=== PATIENT | female | born 1950 | race Caucasian/White ===

== ENCOUNTER 2017-01-05 10:02 | Inpatient (IN) ==
[2017-01-05] MEDS ORDERED: predniSONE 20 MG TABLET PO ONE (10:28)
--- NOTE | 2017-01-05 10:34 | Emergency Department Note ---
Disposition Clinical Impression: Acute exacerbation of chronic obstructive pulmonary disease (COPD), Elevated troponin Disposition: Admitted As Inpatient Condition: Fair Time of Disposition: 12:20 General Adult HPI - General Chief complaint: ED Shortness of Breath/Dyspnea Stated complaint: MARIUSZ, cough Time Seen by Provider: 01/05/17 10:04 Source: patient Mode of arrival: wheelchair Limitations: no limitations Nursing Notes Reviewed: Yes Vital Signs Reviewed: Yes - History of Present Illness HPI Narrative: Patient is a 66-year-old female past medical history of COPD, pacemaker/AICD, and DM she is presenting to the emergency department with the complaint of wheezing and congestion has been going on since yesterday. She states that she has been taking breathing treatments at home and using her inhaler mild to moderate improvement in her symptoms. States she is also felt feverish and had a productive cough. She denies any chest pain, abdominal pain, nausea, vomiting or diarrhea. She states that she is on 2 L of oxygen at home 10/09. She states she did not bring her oxygen today because she was in a hurry. Pain Scale: 5 - Related Data Home Medications Medication Instructions Recorded Confirmed Ascorbic Acid [Vitamin C] 500 mg PO DAILY 01/05/17 01/05/17 Aspirin [Aspirin] 81 mg PO DAILY 01/05/17 01/05/17 Carvedilol [Coreg] 50 mg PO BID 01/05/17 01/05/17 Cholecalciferol (D-3) [Vitamin D] 1,000 unit PO DAILY 01/05/17 01/05/17 Cyclobenzaprine [Flexeril] 10 mg PO HS 01/05/17 01/05/17 Dapagliflozin Propanediol [Farxiga] 5 mg PO DAILY 01/05/17 01/05/17 Digoxin [Lanoxin] 0.125 mg PO DAILY 01/05/17 01/05/17 Exenatide Microspheres [Bydureon 2 mg SQ QWEEK 01/05/17 01/05/17 Pen] Furosemide [Lasix] 40 mg PO DAILY 01/05/17 01/05/17 Glimepiride [Amaryl] 2 mg PO BID 01/05/17 01/05/17 LORazepam [Ativan] 1 mg PO DAILY PRN 01/05/17 01/05/17 Lisinopril [Zestril] 5 mg PO DAILY 01/05/17 01/05/17 Ivor-3/Dha/Epa/Fish Oil [Fish Oil 1,000 mg PO DAILY 01/05/17 01/05/17 1,000 mg Softgel] Paroxetine [Paxil] 20 mg PO DAILY 01/05/17 01/05/17 Roflumilast [Daliresp] 500 mcg PO DAILY 01/05/17 01/05/17 Sitagliptin Phos/Metformin HCl 1 tab PO BID 01/05/17 01/05/17 [Janumet 50-1,000 mg Tablet] Tiotropium [place] [Spiriva 2 puff IH DAILY 01/05/17 01/05/17 Respimat] Warfarin [Coumadin] 7.5 mg PO SUMOTUTHFRSA 01/05/17 01/05/17 Warfarin [Coumadin] 10 mg PO WE 01/05/17 01/05/17 Allergies Allergy/AdvReac Type Severity Reaction Status Date / Time No Known Allergies Allergy Verified 02/06/15 12:49 Review of Systems: Constitutional: Positive for subjective fever and chills Vision: No blurred vision ENT: No rhinorrhea Respiratory: Positive for productive cough and shortness of breath Allergic: No allergies : No blood in urine GI: No blood in stool, no N/V/D or abdominal pain Hematologic: No bruising Dermatologic: No skin rash Musculoskeletal: No pain in the extremities Neuro: No numbness of the extremities All systems ED: reviewed and negative except as stated. Review of Systems: As Per HPI Past Medical History - Past Medical History Medical history: Reports: non-contributory, COPD, diabetes Psychiatric history: Reports: no psych history - Social History Smoking Status: Never smoker Smokeless Tobacco Status: No Alcohol use: Reports: none Drug use: Reports: none Physical Exam CONSTITUTIONAL: Alert and oriented X3, well-nourished, well appearing, in no apparent distress. Patient vital signs she is afebrile, pulse rate is in the 60s , respirations 18, blood pressure is 106/65, and the patient is at 94% on 2 L. patient is sitting up in bed she is able speak to me in full sentences. She does not appear to be in acute respiratory distress. HEAD: Normocephalic; atraumatic. EYES: PERRL, Patien thas a lazy eye on the left. no scleral icterus. NOSE: The nose is normal in appearance without rhinorrhea RESP: Normal chest excursion with respiration; patient has diffuse wheezes throughout inspiratory and expiratory. CARD: Regular rhythm, without murmurs, rub or gallop ABD: Non-distended; non-tender, soft,without rigidity, rebound or guarding SKIN: Normal for age and race; warm and dry; no apparent lesions - General General appearance: alert Course Course Narrative: Patient is a 66 female past medical history of COPD presenting with complaint of wheezing and worsening cough. She came in 84% on room air, however the patient states that she is normally on 2 L of oxygen at home and she forgot her oxygen while rushing into the ED today. While in the room the patient is sitting comfortably on 2 L at 94% oxygen saturation. Plan for this patient is do chest x-ray will order basic labs and also cardiac labs. I will check an EKG. The patient will receive an hour of DuoNeb treatments and oral steroids. I will then reevaluate the patient. - Reevaluation(s) Reevaluation #1: Critical lab troponin 0.08 called in. Patient currently undergoing nebulizer treatment. Time: 11:40 Reevaluation #2: Discussed with patient her elevated lab. Patient states she is feeling better after having her breathing treatment. She is currently satting at 92% on 4 L. I discussed with the patient the plan to admit her to the hospitalist for further observation and monitoring of her troponin. She agrees with this plan. I spoke with Quinton Marc NP and he agrees to accept the patient. Time: 12:19 Vital Signs Temperature 97.4 F L 01/05/17 10:03 Pulse Rate 92 01/05/17 10:03 Respiratory Rate 20 01/05/17 10:03 Blood Pressure 112/64 01/05/17 10:03 O2 Sat by Pulse Oximetry 84 01/05/17 10:03 Temperature 97.6 F 01/05/17 19:00 Pulse Rate 62 01/05/17 19:00 Respiratory Rate 15 01/05/17 20:03 Blood Pressure 99/55 01/05/17 19:00 O2 Sat by Pulse Oximetry 89 01/05/17 20:03 Oxygen Delivery Oxygen Delivery Nasal Cannula Medical Decision Making - Medical Records Medical records reviewed: Yes I reviewed the patient's medical records. - Lab Data Result diagrams: 01/05/17 10:49 01/05/17 10:49 Lab Results 01/05/17 01/05/17 01/05/17 Range/Units 10:49 10:49 10:49 WBC 7.1 (4.3-11.1) K/mcL RBC 4.59 (3.82-4.97) M/mcL Hgb 12.9 (11.5-15.4) g/dL Hct 39.5 (35.3-44.9) % MCV 86.1 (83.0-100.0) fL MCH 28.1 (28.0-33.3) pg MCHC 32.7 (31.6-35.5) g/dL RDW 14.7 H (11.5-14.5) % Plt Count 148 (140-400) K/mcL MPV 9.9 (9.4-12.4) fL Immature Gran % 0.3 (0-4) % Seg Neutrophils % 81.7 % Lymphocytes % 5.5 % Monocytes % 10.4 % Eosinophils % 1.8 % Basophils % 0.3 % Neutrophils # 5.8 (1.6-8.9) K/mcL Lymphocytes # 0.4 L (0.6-4.6) K/mcL Monocytes # 0.7 (0.0-1.3) K/mcL Eosinophils # 0.1 (0.0-0.6) K/mcL Basophils # 0.0 (0.0-0.2) K/mcL Immature Plt Fraction 3.2 (1.1-6.1) % VBG pH (7.32-7.42) pH Units VBG pCO2 (41-51) mmHg VBG pO2 (25-50) mmHg VBG HCO3 (21-27) mEq/L Sodium 138 (136-145) mEq/L Potassium 4.6 H (3.5-4.5) mEq/L Chloride 101 (98-109) mEq/L Carbon Dioxide 30 H (19-29) mEq/L BUN 17 (7-20) mg/dL Creatinine 0.99 (0.57-1.11) mg/dL Est GFR ( Amer) > 60 (> 60) Est GFR (Non-Af Amer) 56 L (> 60) BUN/Creatinine Ratio 17 (6-26) Glucose 167 H (70-99) mg/dL Calculated Osmolality 291 (280-300) Lactic Acid 1.2 (0.5-2.2) mmol/L Calcium 10.1 (8.6-10.8) mg/dL Troponin I (0-0.03) ng/mL B-Natriuretic Peptide (0-100) pg/mL 01/05/17 01/05/17 01/05/17 Range/Units 10:49 10:49 10:58 WBC (4.3-11.1) K/mcL RBC (3.82-4.97) M/mcL Hgb (11.5-15.4) g/dL Hct (35.3-44.9) % MCV (83.0-100.0) fL MCH (28.0-33.3) pg MCHC (31.6-35.5) g/dL RDW (11.5-14.5) % Plt Count (140-400) K/mcL MPV (9.4-12.4) fL Immature Gran % (0-4) % Seg Neutrophils % % Lymphocytes % % Monocytes % % Eosinophils % % Basophils % % Neutrophils # (1.6-8.9) K/mcL Lymphocytes # (0.6-4.6) K/mcL Monocytes # (0.0-1.3) K/mcL Eosinophils # (0.0-0.6) K/mcL Basophils # (0.0-0.2) K/mcL Immature Plt Fraction (1.1-6.1) % VBG pH 7.35 (7.32-7.42) pH Units VBG pCO2 57 H (41-51) mmHg VBG pO2 36 (25-50) mmHg VBG HCO3 32 H (21-27) mEq/L Sodium (136-145) mEq/L Potassium (3.5-4.5) mEq/L Chloride (98-109) mEq/L Carbon Dioxide (19-29) mEq/L BUN (7-20) mg/dL Creatinine (0.57-1.11) mg/dL Est GFR ( Amer) (> 60) Est GFR (Non-Af Amer) (> 60) BUN/Creatinine Ratio (6-26) Glucose (70-99) mg/dL Calculated Osmolality (280-300) Lactic Acid (0.5-2.2) mmol/L Calcium (8.6-10.8) mg/dL Troponin I 0.08 H* (0-0.03) ng/mL B-Natriuretic Peptide 155 H (0-100) pg/mL - Radiology Data Radiology results reviewed: Yes I reviewed the patient's radiology results. Chest X-Ray 01/05/17 10:30 IMPRESSION: Stable cardiomegaly. Mild pulmonary vascular congestion. D/ / Milad Mackay MD / Milad Mackay MD Interpreting Provider: Milad Mackay MD - EKG Data EKG #1 EKG attestation: Yes I reviewed and interpreted this EKG. EKG results narrative: EKG done at 11:01 interpreted by me shows electronic ventricular paced rhythm at 60 bpm. QRS is 152, QT is 438, QTC is 438 degrees are within normal limits. Attestation Statement - Attestation Attestation: I examined this patient and my medical decision-making was reviewed with the Resident Physician. I agree with the documented findings, disposition and treatment plan as described except to the extent set forth below. This is a 66- year-old female presents with concern for dyspnea. I do suspect COPD exacerbation. She did present with hypoxia. Ultimately DuoNeb as well as steroids were administered in addition antibiotics. Chest x-ray shows concern for possible pulmonary edema. ProBNP is within normal limits. Plan to admit for further evaluation of dyspnea due to ongoing hypoxia. I spent greater than 35 minutes of critical care time assessed in this acutely ill patient suffering from hypoxia. This is excluding billable procedures.
[2017-01-05 10:55] LABS: Basophils % 0.3 %; Eosinophils # 0.1 K/mcL (0.0-0.6); Eosinophils % 1.8 %; Hematocrit 39.5 % (35.3-44.9); Hemoglobin 12.9 g/dL (11.5-15.4); Immature Granulocytes % 0.3 % (0-4); Immature Platelets 3.2 % (1.1-6.1); Lymphocytes # 0.4 K/mcL (0.6-4.6); Lymphocytes % 5.5 %; Mean Corpuscular HGB Conc 32.7 g/dL (31.6-35.5); Mean Corpuscular Hemoglobin 28.1 pg (28.0-33.3); Mean Corpuscular Volume 86.1 fL (83.0-100.0); Mean Platelet Volume 9.9 fL (9.4-12.4); Monocytes # 0.7 K/mcL (0.0-1.3); Monocytes % 10.4 %; Neutrophils # 5.8 K/mcL (1.6-8.9); Platelet Count 148 K/mcL (140-400); Red Blood Count 4.59 M/mcL (3.82-4.97); Red Cell Distribution Width 14.7 % (11.5-14.5); Segmented Neutrophils % 81.7 %
[2017-01-05 11:00] LABS: VBG HCO3 32 mEq/L (21-27); VBG PCO2 57 mmHg (41-51); VBG PH 7.35 pH Units (7.32-7.42); VBG PO2 36 mmHg (25-50)
[2017-01-05] MEDS: Ipratropium/Albuterol Neb 3 ML IH SCH ×4 (11:01→23:26)
[2017-01-05 11:05] LABS: BUN/Creatinine Ratio 17 (6-26); Blood Urea Nitrogen 17 mg/dL (7-20); Calcium 10.1 mg/dL (8.6-10.8); Carbon Dioxide 30 mEq/L (19-29); Chloride 101 mEq/L (98-109); Glucose 167 mg/dL (70-99); Osmolality,Calculated 291 (280-300); Potassium 4.6 mEq/L (3.5-4.5); Sodium 138 mEq/L (136-145); eGFR For African Americans > 60 (> 60); eGFR For Non-African Americans 56 (> 60)
[2017-01-05] MEDS ORDERED: Aspirin 81 MG TAB.CHEW PO ONE (12:22)
[2017-01-05] MEDS ORDERED: Levofloxacin 750 MG/150 ML 750 MG/150 ML BAG IVPB ONE (12:22)
[2017-01-05] MEDS ORDERED: Albuterol 2.5 MG/3 ML NEBULIZER IH PRN (12:50)
[2017-01-05] MEDS ORDERED: Naloxone 0.4 MG/ML INJ IVP PRN ×2 (12:53→23:03)
[2017-01-05] MEDS ORDERED: Dextrose Gel 15 GM PO PRN ×2 (12:53)
[2017-01-05] MEDS ORDERED: *HR* Dextrose 50 % in Water (Syg) 50 ML SYRINGE IVP PRN (12:53)
[2017-01-05] MEDS ORDERED: D5% in Water 1,000 ML IVC PRN (12:53)
--- NOTE | 2017-01-05 12:59 | Internal Med History&Physical ---
<Alvarez Marc - Last Filed: 01/05/17 18:14> Date of Encounter: 01/05/17 Time of Encounter: 12:58 Assessment and Plan (1) Acute exacerbation of chronic obstructive pulmonary disease (COPD) Current visit: Yes Status: Acute SOB, increasing o2 requirements to maintain O2 sats, increasing congestion, sputum production and wheezing. Appears to be an acute exacerbation of COPD as well as mild pulmonary vascular congestion. Does not appear septic, no leukocytosis, hemodynamically stable, only mild respiratory distress. Duoneb Q4hrs RENA Albuterol Q2hrs PRN Solumedrol 40mg Q8HRS Levaquin IVPB QD Recheck CBC, BMP in morning Serial trops Rapid Flu swab now (2) Acute on chronic systolic CHF (congestive heart failure) Current visit: Yes Status: Acute Acute SOB, CXR shows mild pulmonary vascular congestion, no peripheral edema noted, no weight gain. She reports she has had no prior coronary events. History of hypertension, biventricular pacer, atrial fibrillation, congestive heart failure. Last Echo 04/2014 with EF of 30%, showing mod diastolic right ventricular dysfunction with mild reduced systolic dysfunction and severe left ventricular systolic dysfunction with diffuse hypokinesis. Last stress test of ischemia noted. Denies any chest pain, hemodynamically stable on the reporting mild shortness of breath. Echocardiogram Serial troponins Continuous telemetry, continuous O2 monitoring Lasix 40 mg IV push twice a day Hold off on stress test for now; no c/o CP, Consider stress if she develops CP or if trop increases (3) Diabetes Current visit: Yes Status: Acute Hold Farxiga, Amaryl, and metformin. Start LSSIC, AC/HS Accu-Cheks, diabetic/cardiac diet Qualifiers: Diabetes mellitus type: type 2 Diabetes mellitus complication status: without complication Diabetes mellitus termite helper insulin use: unspecified termite helper insulin use status Qualified Code(s): E11.9 - Type 2 diabetes mellitus without complications (4) HTN (hypertension) Current visit: Yes Status: Acute Continue KIM Qualifiers: Hypertension type: unspecified Qualified Code(s): I10 - Essential (primary ) hypertension (5) Elevated troponin Current visit: Yes Status: Acute No prior history of SC, troponin 0.08. See plan above (6) A-fib Current visit: Yes Status: Acute h/o, stable, now BIventricular paced, continue home digoxin and coumadin with PT to dose. PT/INR now then per protocol Qualifiers: Qualified Code(s): I48.91 - Unspecified atrial fibrillation (7) DVT prophylaxis Current visit: Yes Status: Acute Heparin SC 5000units Q12hrs Internal Medicine - H&P: HPI Chief complaint: COPD exacerbation, CHF exacerbation, elevated troponin Admitted From: Home Plans for Post Hospital Care: Home History of present illness: Ms. Tatum is a 66 year old female with PMH of atrial fibrillation, biventricular AICD, COPD, diabetes, CHF. Presents today to [facility] with shortness of breath. She reports shortness of breath and wheezing beginning this morning. Patient states that she wears 2 L of oxygen at home but had to increase her oxygen to 4 L as of this morning due to shortness of breath. She admits to fever, chills, generalized body aches, post nasal drip, sore throat, sinus pressure, orthopnea, and lightheadedness. Denies any CP, N/V, diaphoresis, or syncope. Chest x-ray showed mild pulmonary vascular congestion, troponin elevated at 0.08, BNP 155 Past Med Surg Social Fam HX - Past Medical History Medical history: non-contributory, COPD, diabetes Psychiatric history: no psych history - Social History Smoking Status: Never smoker Smokeless Tobacco Status: No Alcohol use: none Drug use: none - Family History Mother Living Status: Age at : 72 Cause of : Ovarian cancer Sister Hx Family Endocrine Disorder: Yes (Thyroid removal) Internal Medicine - H&P: Meds Ascorbic Acid [Vitamin C] 500 mg PO DAILY 01/05/17 [History] Aspirin [Aspirin] 81 mg PO DAILY 01/05/17 [History] Carvedilol [Coreg] 50 mg PO BID 01/05/17 [History] Cholecalciferol (D-3) [Vitamin D] 1,000 unit PO DAILY 01/05/17 [History] Cyclobenzaprine [Flexeril] 10 mg PO HS 01/05/17 [History] Dapagliflozin Propanediol [Farxiga] 5 mg PO DAILY 01/05/17 [History] Digoxin [Lanoxin] 0.125 mg PO DAILY 01/05/17 [History] Exenatide Microspheres [Bydureon Pen] 2 mg SQ QWEEK 01/05/17 [History] Furosemide [Lasix] 40 mg PO DAILY 01/05/17 [History] Glimepiride [Amaryl] 2 mg PO BID 01/05/17 [History] LORazepam [Ativan] 1 mg PO DAILY PRN 01/05/17 [History] Lisinopril [Zestril] 5 mg PO DAILY 01/05/17 [History] [place]-3/Dha/Epa/Fish Oil [Fish Oil 1,000 mg Softgel] 1,000 mg PO DAILY 01/05/17 [History] Paroxetine [Paxil] 20 mg PO DAILY 01/05/17 [History] Roflumilast [Daliresp] 500 mcg PO DAILY 01/05/17 [History] Sitagliptin Phos/Metformin HCl [Janumet 50-1,000 mg Tablet] 1 tab PO BID [History] Tiotropium [place] [Spiriva Respimat] 2 puff IH DAILY 01/05/17 [History] Warfarin [Coumadin] 7.5 mg PO SUMOTUTHFRSA 01/05/17 [History] Warfarin [Coumadin] 10 mg PO WE 01/05/17 [History] 3 Allergy/AdvReac Type Severity Reaction Status Date / Time No Known Allergies Allergy Verified 02/06/15 12:49 All Systems PM: A 10-system review of systems was performed and is negative for pertinent findings except as documented above in the HPI. - Constitutional Constitutional: chills, fatigue, fever(s), weakness, no night sweats, no weight gain, no weight loss - EENT Nose, mouth and throat: nasal congestion, post-nasal drip, sinus pain, sinus pressure, sore throat, no nasal discharge, no throat swelling, no tongue swelling - Cardiovascular Cardiovascular ROS IM: as per HPI, orthopnea, no chest pain, no edema, no irregular heart rhythm, no lightheadedness, no palpitations, no paroxysmal nocturnal dyspnea, no syncope - Respiratory Respiratory: cough, dyspnea, wheezing, chest congestion, no pain on inspiration Additional comments: increasing sputum production - Gastrointestinal Gastrointestinal: no abdominal pain, no diarrhea, no nausea, no vomiting - Genitourinary Genitourinary: no dysuria, no flank pain - Integumentary Integumentary IM: no rash, no unusual bruising - Neurological Neurological ROS: headache(s) - Constitutional Vitals: Temp Pulse Resp BP Pulse Ox 97.4 F L 60 18 104/67 98 01/05/17 10:03 01/05/17 12:54 01/05/17 12:54 01/05/17 12:54 01/05/17 12:54 General appearance: Present: cooperative, A&O X 3, no acute distress, answers questions appropriately - Head Head exam: Present: atraumatic, normocephalic - Eye Eye exam: Present: PERRL, conjuntiva pink, sclera anicteric Pupils: Present: PERRL - Neck Neck exam general surgery: Present: supple, trachea midline. Absent: lymphadenopathy - Respiratory Respiratory exam: Present: CTAB, wheezes, tachypnea. Absent: accessory muscle use, chest wall tenderness, rales, respiratory distress, rhonchi - Cardiovascular Cardiovascular exam: Present: RRR, +S1, +S2. Absent: diastolic murmur, gallop, rubs, systolic murmur - GI/Abdominal GI/Abdominal exam: Present: normal bowel sounds, soft, no peritoneal signs. Absent: distended, tenderness - Extremities Exam Extremities exam: Present: warm, radial pulses palpable and symmetrical. Absent : calf tenderness, cyanotic, pedal edema - Neurological Exam Neurological exam: Present: CN II-XII intact, oriented X3, no focal deficits. Absent: pronater drift, facial droop, speech deficit - Skin Skin exam: Present: dry, intact Internal Med - H&P Results - Labs CBC & Chem 7: 01/05/17 10:49 01/05/17 10:49 - EKG Data Prior EKG available for review: yes When compared to previous EKG: there is no significant change EKG comments: 01/05/17 13:09 Biventricular paced - Diagnostic Studies Chest x-ray Status: image reviewed by me Additional comments: Mild pulmonary vascular congestion, stable cardiomegaly <Damián Huggins - Last Filed: 01/05/17 19:12> Date of Encounter: 01/05/17 Internal Medicine - H&P: HPI History of present illness: Ms. Tatum is a 66 year old female All Systems PM: A 10-system review of systems was performed and is negative for pertinent findings except as documented above in the HPI. - Constitutional Vitals: Temp Pulse Resp BP Pulse Ox 97.6 F 62 16 99/55 93 01/05/17 19:00 01/05/17 19:00 01/05/17 19:00 01/05/17 19:00 01/05/17 19:00 Internal Med - H&P Results - Labs CBC & Chem 7: 01/05/17 10:49 01/05/17 10:49 Labs: Cardiac Enzymes 01/05/17 Range/Units 15:58 Troponin I 0.08 H* (0-0.03) ng/mL - Attending Attestation I have personally performed a face to face evaluation on this patient. I have reviewed and agree with the care plan. History and Exam by me shows: 66 y/o female admitted for acute exac COPD. She is currently high risk due to potential for worsening resp status. Exam Alert. Comfortable Wheeze present No tachycardia Agree with assessment and plan as documented above.
[2017-01-05] MEDS ORDERED: Furosemide 20 MG/2 ML VIAL IVP SCH (13:45)
[2017-01-05 15:10] LABS: INR 2.7; Prothrombin Time 29.5 Seconds (9.4-12.1)
[2017-01-05] MEDS ORDERED: Warfarin perPT PO PRN (18:00)
[2017-01-05] MEDS ORDERED: *HR* Warfarin 5 MG TABLET PO ONE (18:00)
[2017-01-05] MEDS: MethylPREDNISolone 40 MG/ML VIAL IVP SCH ×2 (18:14→23:44)
[2017-01-05] MEDS: Furosemide 40 MG/4 ML VIAL IVP SCH (18:14)
[2017-01-05] MEDS: Insulin LISPRO 300 UNITS/3 ML VIAL SQ SCH ×2 (18:16→21:41)
[2017-01-05] MEDS: *HR* Heparin 5,000 UNIT/ML VIAL SQ SCH (18:31)
[2017-01-05] MEDS: *HR* LORazepam 1 MG TABLET PO PRN (21:40)
[2017-01-06] MEDS: Ipratropium/Albuterol Neb 3 ML IH SCH ×6 (03:49→22:00)
[2017-01-06 04:24] LABS: Hematocrit 39.5 % (35.3-44.9); Mean Corpuscular HGB Conc 32.9 g/dL (31.6-35.5); Mean Corpuscular Hemoglobin 27.5 pg (28.0-33.3); Mean Corpuscular Volume 83.5 fL (83.0-100.0); Mean Platelet Volume 10.3 fL (9.4-12.4); Platelet Count 154 K/mcL (140-400); Red Blood Count 4.73 M/mcL (3.82-4.97); Red Cell Distribution Width 14.6 % (11.5-14.5)
[2017-01-06 04:28] LABS: Prothrombin Time 32.7 Seconds (9.4-12.1)
[2017-01-06 04:37] LABS: Calcium 10.7 mg/dL (8.6-10.8); Potassium 4.4 mEq/L (3.5-4.5)
[2017-01-06] MEDS: *HR* Heparin 5,000 UNIT/ML VIAL SQ SCH (05:50)
[2017-01-06] MEDS: Aspirin 81 MG TAB.CHEW PO SCH (09:05)
[2017-01-06] MEDS: Furosemide 40 MG/4 ML VIAL IVP SCH (09:06)
[2017-01-06] MEDS: *HR* Digoxin 0.125 MG TABLET PO SCH (09:06)
[2017-01-06] MEDS: Insulin LISPRO 300 UNITS/3 ML VIAL SQ SCH ×4 (09:06→21:33)
[2017-01-06] MEDS: MethylPREDNISolone 40 MG/ML VIAL IVP SCH ×2 (09:06→17:47)
[2017-01-06] MEDS: (Roflumilast [Daliresp] 500 MCG) PO SCH (09:17)
--- NOTE | 2017-01-06 10:50 | Internal Med Progress Note ---
Date of Encounter: 01/06/17 Time of Encounter: 10:40 - Assessment and plan (1) Acute on chronic respiratory failure with hypoxemia Current Visit: Yes Status: Acute Assessment and plan: Currently on 4 liters NC and home dose is 2 Liters. Will taper back as able. No distress at this time. (2) Acute exacerbation of chronic obstructive pulmonary disease (COPD) Current Visit: Yes Status: Acute Assessment and plan: Currently on IV steroids, aerosols, oxygen and abx. Will decrease IV steroids today and continue other management as ordered. (3) Acute on chronic systolic CHF (congestive heart failure) Current Visit: Yes Status: Acute Assessment and plan: Has been receiving BID Lasix and appears to have diuresed some and is improving. Will decrease to daily due to improvement and increase in creatinine level this AM. (4) Demand ischemia Current Visit: Yes Status: Acute Assessment and plan: Troponin static and low. Most likely related to CHF, hypoxia and exac COPD. (5) A-fib Current Visit: Yes Status: Chronic Assessment and plan: Continue home meds and coumadin managed by pharmacy Qualifiers: Atrial fibrillation type: chronic Qualified Code(s): I48.2 - Chronic atrial fibrillation (6) Acute kidney injury Current Visit: Yes Status: Acute Assessment and plan: Most likely related to diuresis. Will decrease diuretic today and recheck in AM. (7) HTN (hypertension) Current Visit: Yes Status: Chronic Assessment and plan: Appears controlled at this time. Qualifiers: Hypertension type: essential hypertension Qualified Code(s): I10 - Essential (primary) hypertension (8) Diabetes Current Visit: Yes Status: Chronic Assessment and plan: Continue accuchecks and coverage Qualifiers: Diabetes mellitus type: type 2 Diabetes mellitus complication status: without complication Diabetes mellitus skilled nursing insulin use: unspecified skilled nursing insulin use status Qualified Code(s): E11.9 - Type 2 diabetes mellitus without complications (9) HLD (hyperlipidemia) Current Visit: Yes Status: Chronic Assessment and plan: Chronic issue Qualifiers: Hyperlipidemia type: mixed hyperlipidemia Qualified Code(s): E78.2 - Mixed hyperlipidemia - Subjective Interval history: Ms. Tatum is currently admitted for acute exac CHF and COPD. She remains moderate to high risk due to potential for worsening respiratory status. Ms. Tatum feels a little better today. She says her breathing has improved some and her swellling is somewhat better. No CP. No fever or chills. Has been up walking in room at times. Getting treatments around the clock at this time. - Constitutional Vitals: Temp Pulse Resp BP Pulse Ox 97.5 F L 64 16 147/81 97 01/06/17 07:33 01/06/17 07:33 01/06/17 07:56 01/06/17 07:33 01/06/17 07:56 General appearance: Present: cooperative, A&O X 3, no acute distress, answers questions appropriately - Head Head exam: Present: atraumatic, normocephalic - Eye Eye exam: Present: conjuntiva pink - ENT ENT exam: Present: mucous membranes moist - Neck Neck exam general surgery: Absent: lymphadenopathy, thyromegaly - Respiratory Respiratory exam: Present: decreased breath sounds, wheezes. Absent: rales, rhonchi - Cardiovascular Cardiovascular exam: Present: distant heart sounds, RRR. Absent: tachycardia - GI/Abdominal GI/Abdominal exam: Present: soft. Absent: mass, tenderness - Extremities Exam Extremities exam: Present: warm. Absent: tenderness - Neurological Exam Neurological exam: Present: alert, oriented X3 - Skin Skin exam: Present: dry, warm. Absent: rash Internal Medicine: Result - Labs CBC & Chem 7: 01/06/17 04:01 01/06/17 04:01 Labs: Short CBC 01/06/17 Range/Units 04:01 WBC 3.3 L D (4.3-11.1) K/mcL Hgb 13.0 (11.5-15.4) g/dL Hct 39.5 (35.3-44.9) % Plt Count 154 (140-400) K/mcL [facility] 01/06/17 04:01 Sodium 137 Potassium 4.4 Chloride 99 Carbon Dioxide 28 BUN 27 H D Creatinine 1.31 H Glucose 190 H Calcium 10.7 - ABG Interpretation ABG results: PT/INR, D-dimer PT 32.7 Seconds (9.4-12.1) H 01/06/17 04:01 Consult Discharge Plan - Plan Referrals: Salome Gonsalez MD [Primary Care Provider] -
[2017-01-06] MEDS ORDERED: Levofloxacin 750 MG/150 ML 750 MG/150 ML BAG IVPB SCH (11:00)
[2017-01-06] MEDS ORDERED: *HR* Warfarin 4 MG TABLET PO ONE (18:00)
--- NOTE | 2017-01-06 19:45 | Electrocardiograph Report ---
[place] [id number] Test Date: 2017-01-05 Pat Name: Vandana Tatum Department: 102 Room: 3B24 Gender: Mid Level Developer: : 1950 Requested By: Bill Nichole Order Number: [id number] Reading MD: Juan Santos MD Measurements Intervals May Rate: 60 P: NC: 0 QRS: 216 QRSD: 152 T: 60 QT: 438 QTc: 438 Interpretive Statements ELECTRONIC VENTRICULAR PACEMAKER Electronically Signed On 01-06-2017 19:44:06 EST by Juan Santos MD
[2017-01-06] MEDS: *HR* LORazepam 1 MG TABLET PO PRN (21:33)
[2017-01-07 04:29] LABS: Hematocrit 39.8 % (35.3-44.9); Mean Corpuscular HGB Conc 32.7 g/dL (31.6-35.5); Mean Corpuscular Hemoglobin 27.4 pg (28.0-33.3); Mean Corpuscular Volume 83.8 fL (83.0-100.0); Mean Platelet Volume 10.5 fL (9.4-12.4); Platelet Count 182 K/mcL (140-400); Red Blood Count 4.75 M/mcL (3.82-4.97); Red Cell Distribution Width 14.5 % (11.5-14.5)
[2017-01-07] MEDS: Ipratropium/Albuterol Neb 3 ML IH SCH ×2 (04:29→11:11)
[2017-01-07 04:36] LABS: INR 2.9; Prothrombin Time 32.5 Seconds (9.4-12.1)
[2017-01-07 04:49] LABS: Calcium 10.2 mg/dL (8.6-10.8); Magnesium 2.1 mg/dL (1.6-2.6); Potassium 4.3 mEq/L (3.5-4.5)
[2017-01-07] MEDS: MethylPREDNISolone 40 MG/ML VIAL IVP SCH (05:22)
[2017-01-07 07:17] VITALS: BP 112/68
[2017-01-07] MEDS: *HR* Digoxin 0.125 MG TABLET PO SCH (08:38)
[2017-01-07] MEDS: Aspirin 81 MG TAB.CHEW PO SCH (08:38)
[2017-01-07] MEDS: Insulin LISPRO 300 UNITS/3 ML VIAL SQ SCH (08:39)
[2017-01-07] MEDS: (Roflumilast [Daliresp] 500 MCG) PO SCH (08:53)
--- NOTE | 2017-01-07 08:57 | Discharge Summary ---
Date of Encounter: 01/07/17 Time of Encounter: 08:48 - Discharge Diagnosis (1) Acute on chronic respiratory failure with hypoxemia Priority: Primary Status: Acute (2) Acute exacerbation of chronic obstructive pulmonary disease (COPD) Priority: Primary Status: Acute (3) Acute on chronic systolic CHF (congestive heart failure) Priority: Primary Status: Acute (4) Demand ischemia Priority: Secondary Status: Acute (5) A-fib Priority: Secondary Status: Chronic Qualifiers: Atrial fibrillation type: chronic Qualified Code(s): I48.2 - Chronic atrial fibrillation (6) Acute kidney injury Priority: Secondary Status: Acute (7) HTN (hypertension) Priority: Secondary Status: Chronic Qualifiers: Hypertension type: essential hypertension Qualified Code(s): I10 - Essential (primary) hypertension (8) Diabetes Priority: Secondary Status: Chronic Qualifiers: Diabetes mellitus type: type 2 Diabetes mellitus complication status: without complication Diabetes mellitus penitentiary insulin use: unspecified terminal clerk insulin use status Qualified Code(s): E11.9 - Type 2 diabetes mellitus without complications (9) HLD (hyperlipidemia) Priority: Secondary Status: Chronic Qualifiers: Hyperlipidemia type: mixed hyperlipidemia Qualified Code(s): E78.2 - Mixed hyperlipidemia - Discharge Medications Prescriptions: Albuterol Sulfate [Ventolin Hfa] 2 puff IH QID PRN #1 hfa.aer.ad PRN Reason: Dyspnea levoFLOXacin [Levaquin] 750 mg PO DAILY #3 tablet PredniSONE [Deltasone] 40 mg PO DAILY #5 tablet Home Medications: Ascorbic Acid [Vitamin C] 500 mg PO DAILY 01/05/17 [History] Aspirin 81 mg PO DAILY 01/05/17 [History] Carvedilol [Coreg] 50 mg PO BID 01/05/17 [History] Cholecalciferol (D-3) [Vitamin D] 1,000 unit PO DAILY 01/05/17 [History] Cyclobenzaprine [Flexeril] 10 mg PO HS 01/05/17 [History] Dapagliflozin Propanediol [Farxiga] 5 mg PO DAILY 01/05/17 [History] Digoxin [Lanoxin] 0.125 mg PO DAILY 01/05/17 [History] Exenatide Microspheres [Bydureon Pen] 2 mg SQ QWEEK 01/05/17 [History] Furosemide [Lasix] 40 mg PO DAILY 01/05/17 [History] Glimepiride [Amaryl] 2 mg PO BID 01/05/17 [History] LORazepam [Ativan] 1 mg PO DAILY PRN 01/05/17 [History] Lisinopril [Zestril] 5 mg PO DAILY 01/05/17 [History] [place]-3/Dha/Epa/Fish Oil [Fish Oil 1,000 mg Softgel] 1,000 mg PO DAILY 01/05/17 [History] Paroxetine [Paxil] 20 mg PO DAILY 01/05/17 [History] Roflumilast [Daliresp] 500 mcg PO DAILY 01/05/17 [History] Sitagliptin Phos/Metformin HCl [Janumet 50-1,000 mg Tablet] 1 tab PO BID [History] Tiotropium [place] [Spiriva Respimat] 2 puff IH DAILY 01/05/17 [History] Warfarin [Coumadin] 7.5 mg PO SUMOTUTHFRSA 01/05/17 [History] Warfarin [Coumadin] 10 mg PO WE 01/05/17 [History] Albuterol Sulfate [Ventolin Hfa] 2 puff IH QID PRN #1 hfa.aer.ad 01/07/17 [Rx] PredniSONE [Deltasone] 40 mg PO DAILY #5 tablet 01/07/17 [Rx] levoFLOXacin [Levaquin] 750 mg PO DAILY #3 tablet 01/07/17 [Rx] Allergies/Adverse Reactions: 3 Allergy/AdvReac Type Severity Reaction Status Date / Time No Known Allergies Allergy Verified 02/06/15 12:49 Date of admission: 01/05/17 23:00 Primary care physician: Salome Gonsalez Discharging clinician: Damián Huggins Anticipated date of discharge: 01/07/17 - Patient Status Disposition: Home, Self-Care Condition: Fair Functional capacity at discharge: independent ambulation Overall status at discharge: patient is progressing back to baseline - Discharge Instructions Follow Up With: Salome Gonsalez MD [Primary Care Provider] - - Diet and Activity Activity: increase activity as tolerated Diet: advance to your usual diet Hospital course: Ms. Tatum is a 66 year old female with hx of chronic a fib and COPD presented to the ED with complaints of worsening dyspnea. Her oxygen requirements were higher than baseline. She was evaluated in ED and placed in observation for further evaluation and treatment. Ms Tatum was admitted to the hospital with acute exac COPD and CHF. She was given IV Lasix for diuresis. She was given IV steroids and aerosols for COPD. Abx were given and her oxygen was titrated. She had slow improvement in her clinical status and steroids were decreased on 01/06. She had no acute issues overnight. Her renal function worsened slightly and Lasix was adjusted. Her renal function had improved some on 01/07. Today she is feeling better. She is afebrile with stable vitals and ready for discharge home with PO abx and steroids. She will follow with PCP. - Time Spent with Patient Total time spent providing and/or coordinating discharge services: 39min - Constitutional Vitals: Temp Pulse Resp BP Pulse Ox 97.6 F 69 17 112/68 93 01/07/17 07:14 01/07/17 07:14 01/07/17 07:14 01/07/17 07:14 01/07/17 07:14 General appearance: Present: cooperative, A&O X 3, answers questions appropriately - Head Head exam: Present: atraumatic, normocephalic - Eye Eye exam: Present: EOMI, conjuntiva pink - ENT ENT exam: Present: mucous membranes moist - Respiratory Respiratory exam: Present: rales. Absent: rhonchi, wheezes Additional comments: Scant bibasilar rales. - Cardiovascular Cardiovascular exam: Present: RRR. Absent: tachycardia - GI/Abdominal GI/Abdominal exam: Present: soft. Absent: mass, tenderness - Extremities Exam Extremities exam: Present: warm. Absent: tenderness - Neurological Exam Neurological exam: Present: alert, oriented X3 - Skin Skin exam: Present: dry, warm. Absent: rash
[2017-01-07] MEDS ORDERED: Furosemide 40 MG/4 ML VIAL IVP SCH (09:00)
[2017-01-08] MEDS ORDERED: Levofloxacin 750 MG/150 ML 750 MG/150 ML BAG IVPB SCH (12:00)
== END 2017-01-07 13:33 | disposition home or self-care (01) | DRG 140 ==
LOC: EMEROO 10:02 → 3BNU 10:02
PROVIDERS: ADMIT Nurse Practitioner; ATTEND Registered Nurse